=== PATIENT | male | born 1975 | race African-American/Black ===

== ENCOUNTER 2016-10-06 21:28 | Emergency (ER) | payer OTHER ==
--- NOTE | 2016-10-06 21:40 | PDOC ---
History of Present Illness - General Chief Complaint: Blood Sugar Problem Stated Complaint: LOW BLOOD SUGAR Time Seen by Provider: 10/06/16 21:35 - History of Present Illness Initial Comments: 10/06/16 22:24 This 41-year-old man with a history of sickle cell trait and chronic lower back pain presents with a two-week history of intermittent watery diarrhea, and generalized joint pain. Patient states that the joint pains are typical symptoms of of his sickle-cell trait when he is otherwise stressed. He has no history of measured fever although he has had intermittent sweating. He describes diarrhea as watery, with several bowel movements per day. There has been no blood or mucus in the stool. No recent travel; no other family members have diarrhea currently. No recent antibiotic therapy. He generally has been able to eat and drink normally although his appetite is not normal in the last few weeks. Tonight, patient felt more upper abdominal discomfort and nausea that he had in the past few weeks. Past History - Past Medical History Allergies/Adverse Reactions: Allergies Allergy/AdvReac Type Severity Reaction Status Date / Time No Known Allergies Allergy Verified 11/11/15 11:48 Home Medications: Ambulatory Orders Methocarbamol [Robaxin -] 500 mg PO TID PRN #30 tablet 11/11/15 Naproxen [Naprosyn -] 500 mg PO BID PRN #14 tablet 11/11/15 - Psycho/Social/Smoking Cessation Hx Anxiety: No Suicidal Ideation: No Smoking History: Current every day smoker Have you smoked in the past 12 months: Yes Number of Cigarettes Smoked Daily: 3 'Breaking Loose' booklet given: 08/29/15 Hx Alcohol Use: No Drug/Substance Use Hx: No Substance Use Type: None Review of Systems - Review of Systems Able to Perform ROS?: Yes Comments:: 12 point review of systems is negative except for what is noted in the history of present illness *Physical Exam - Physical Exam Comments: GENERAL: The patient is awake, alert, and fully oriented, in no acute distress. Vital signs as noted. HEAD: Normal with no signs of trauma. EYES: Pupils equal, round and reactive to light, extraocular movements intact, sclera anicteric, conjunctiva clear with no pallor. ENT: Dry mucous membranes. Ears normal, nares patent, oropharynx clear without exudates. NECK: Normal range of motion, supple without lymphadenopathy, JVD, or masses. LUNGS: Breath sounds equal, clear to auscultation bilaterally. No wheeze/ crackles. HEART: Regular rate and rhythm, normal S1 and S2 without murmur or rub. ABDOMEN: Soft/nondistended. BS wnl. Mild epigastric tenderness. Voluntary guarding present. No involuntary guarding or rebound. No palpable masses. No hepatosplenomegaly. EXTREMITIES: Normal range of motion, no edema. No clubbing or cyanosis. No cords, erythema, or tenderness. No edema/erythema/increased warmth of joints noted NEUROLOGICAL: Cranial nerves II through XII grossly intact. Normal speech, normal gait. PSYCH: Normal mood, normal affect. SKIN: Warm, Dry, normal turgor, no rashes or lesions noted. ED Treatment Course - LABORATORY CBC & Chemistry Diagram: 10/06/16 22:25 10/06/16 22:25 Medical Decision Making - Medical Decision Making 10/06/16 23:51 Patient feels markedly better after 1 L normal saline, 30 mg of Toradol IV and Reglan 10 mg IV. No further abdominal pain or nausea present. Patient feels ready to be discharged. Laboratory evaluation generally unremarkable except for elevated total bilirubin of 3.1. Patient has had elevated bilirubin in the past in the 1.2- 1.3 range. No other abnormalities noted in the LFTs. Bilirubin level discussed with the patient; he will follow-up with his PMD, Dr. Fried within the next 2-3 days Meanwhile, the patient will continue to drink plenty of fluids and take Imodium as needed after loose stools. Patient will return to the ER if he has worsening pain, develops fever or vomiting *DC/Admit/Observation/Transfer Diagnosis at time of Disposition: Diarrhea - Discharge Dispostion Disposition: HOME Condition at time of disposition: Stable - Referrals Referrals: Sreedhar Fried MD [Staff Physician] - 2 Days - Patient Instructions Printed Discharge Instructions: DI for Diarrhea and Traveler's Diarrhea -- Adult Additional Instructions: Continue to drink plenty of fluids Imodium as needed after loose stools Return to ER if you have vomiting, increased abdominal pain or fever Follow-up with Dr. Fried within the next 2-3 days
[2016-10-06 21:52] VITALS: BP 151/90; PULSE 82; TEMP 98.3; BMI 23.7
[2016-10-06] MEDS ORDERED: KETOROLAC TROMETHAMINE 30 MG/1 ML VIAL IVPUSH ONE (22:22)
[2016-10-06] MEDS ORDERED: SODIUM CHLORIDE 1,000 ML IV STA (22:22)
[2016-10-06] MEDS ORDERED: METOCLOPRAMIDE HCL INJECTION 10 MG/2 ML VIAL IVPB ONE (22:22)
[2016-10-06] MEDS ORDERED: KETOROLAC TROMETHAMINE 30 MG/1 ML VIAL ONE (22:32)
[2016-10-06 22:41] LABS: MCH 28.6 pg (25.7-33.7); MEAN CELL VOLUME 86.6 fl (80-96); MEAN PLT VOLUME 9.2 fl (7.5-11.1); PLATELET COUNT 189 K/MM3 (134-434); RDW 12.3 % (11.9-15.9); WHITE BLOOD COUNT 5.2 K/mm3 (4.0-10.8)
[2016-10-06 22:52] LABS: ALBUMIN 3.9 g/dl (3.5-5.0); ALK PHOS 52 U/L (32-92); ANION GAP 10 (8-16); BILIRUBIN,TOTAL 3.1 mg/dl (0.2-1.0); CO2 24 mmol/L (22-28); CREATININE 1.2 mg/dl (0.6-1.3); GLUCOSE,RANDOM 93 mg/dl (74-106); SGOT/AST 21 U/L (10-42); SGPT/ALT 17 U/L (10-40); TOT PROT 6.5 g/dl (6.4-8.3)
[2016-10-06] MEDS ORDERED: POTASSIUM CHLORIDE TABS 20 MEQ TABLET.ER (FP) PO ONE ×2 (23:48→23:50)
== END 2016-10-07 00:03 | disposition home or self-care (01) ==
LOC: FER 21:28
PROC: 3E0333Z Introduction of Anti-inflammatory into Peripheral Vein, Percutaneous Approach (ICD-10-PCS; principal; 2016-10-06)
PROC: 3E033GC Introduction of Other Therapeutic Substance into Peripheral Vein, Percutaneous Approach (ICD-10-PCS; 2016-10-06)
PROC: 3E0337Z Introduction of Electrolytic and Water Balance Substance into Peripheral Vein, Percutaneous Approach (ICD-10-PCS; 2016-10-06)
DX: R19.7 Diarrhea, unspecified (principal); F17.210 Nicotine dependence, cigarettes, uncomplicated; D57.3 Sickle-cell trait; G89.29 Other chronic pain
CPT/HCPCS: 36415; 80053; 85025; 99282-25

== ENCOUNTER 2019-02-17 09:33 | Emergency (ER) | payer OTHER ==
[2019-02-17 09:40] VITALS: TEMP 99.3; BMI 21.2
--- NOTE | 2019-02-17 10:02 | PDOC ---
History of Present Illness - General Chief Complaint: Pain Stated Complaint: SICKLE CELL Time Seen by Provider: 02/17/19 10:02 History Source: Patient Exam Limitations: No Limitations - History of Present Illness Initial Comments: 43 year old male with PMH sickle cell trait presented to ED for left low back pain since yesterday, suprapubic pain since yesterday, increased urinary frequency x1 week, n/v yesterday. 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 He reported he intermittently has episodes of diffuse pain/n/v related to his sickle cell trait, and he usually takes Naproxen for his pain. He reported that he did not take it for this episode because he does not have any because he has not had an episode like this recently. Pt denied chest pain, shortness of breath , bowel or bladder incontinence, weight loss, spinal injections, hx of DM, IVDU. Past History - Past Medical History Allergies/Adverse Reactions: Allergies Allergy/AdvReac Type Severity Reaction Status Date / Time No Known Allergies Allergy Verified 11/11/15 11:48 Home Medications: Ambulatory Orders Methocarbamol [Robaxin -] 500 mg PO TID PRN #9 tablet 02/17/19 Naproxen 500 mg PO BID #10 tablet 02/17/19 COPD: No Other medical history: Sickle cell - Psycho Social/Smoking Cessation Hx Smoking History: Never smoked Have you smoked in the past 12 months: No Number of Cigarettes Smoked Daily: 3 'Breaking Loose' booklet given: 08/29/15 Hx Alcohol Use: No Drug/Substance Use Hx: No Substance Use Type: None Review of Systems - Review of Systems Able to Perform ROS?: Yes Comments:: ROS General: admitted to generalized weakness. denied fever, chills. HEENT: denied sore throat, rhinorrhea, ear pain. Cardiovascular: denied chest pain, palpitations, syncope, diaphoresis. Respiratory: denied shortness of breath, cough, sputum production, hemoptysis. Gastrointestinal: admitted to abdominal pain. denied nausea, vomiting, diarrhea , constipation, blood in stool, bowel incontinence. Genitourinary: admitted to increased urinary frequency. denied dysuria, hematuria, urinary incontinence, flank pain. Back: admitted to back pain. Musculoskeletal: admitted to joint pain, muscle pain. denied joint swelling. Neurological: denied headache, dizziness, numbness, tingling, weakness. Integumentary: denied rash, laceration, abrasion. Hematologic/Lymphatic: denied bruising or bleeding. PE Constitutional: Well-nourished, Well-developed, appearing stated age. HEENT: head is normocephalic, atraumatic. EOMI. PERRLA. Neck: supple. Full ROM. Cardiovascular: regular heart rhythm. no murmurs. no pericardial friction rub. Respiratory: clear to auscultation bilaterally. no crackles, rhonchi or wheezing. no stridor. Gastrointestinal: soft, flat, nontender. normal bowel sounds. no rebound, guarding, masses. Extremities: peripheral pulses intact. no lower extremity edema. Neurological: CN 2-12 grossly intact. moves all four extremities. Psych: awake, alert, oriented x3. follows commands. answers questions appropriately. Back: increased left erector spinae muscle tone with tenderness to palpation. no midline c-spine, T-spine, or L-spine tenderness. negative straight leg test bilaterally. *Physical Exam - Vital Signs Last Vital Signs Temp Pulse Resp BP Pulse Ox 99.3 F 91 H 18 115/79 100 02/17/19 09:36 02/17/19 09:36 02/17/19 09:36 02/17/19 09:36 02/17/19 09:36 ED Treatment Course - LABORATORY CBC & Chemistry Diagram: 02/17/19 10:30 02/17/19 10:30 Medical Decision Making - Medical Decision Making 43 year old male with above PMH presented to ED for diffuse pain, left low back pain s/p lifting heavy desk, increased urinary frequency x1 week with suprapubic discomfort x1 day. Initial Vital Signs Temp Pulse Resp BP Pulse Ox 99.3 F 91 H 18 115/79 100 02/17/19 09:36 02/17/19 09:36 02/17/19 09:36 02/17/19 09:36 02/17/19 09:36 Afebrile. No tachycardia. No tachypnea. No hypotension. No hypoxia on room air. Labs ordered: CBC, CMP, troponin Imaging ordered: CXR Medications ordered: toradol 30 mg IV once, normal saline bolus 1000 cc once EKG performed at 1023: rate 91, regular rhythm, normal axis, normal intervals, no acute ST changes. 02/17/19 12:18 CBC WBC 8.8 K/mm3 (4.0-10.0) 02/17/19 10:30 RBC 4.83 M/mm3 (4.00-5.60) 02/17/19 10:30 Hgb 14.0 GM/dL (11.7-16.9) 02/17/19 10:30 Hct 42.8 % (35.4-49) 02/17/19 10:30 MCV 88.7 fl (80-96) 02/17/19 10:30 MCH 29.0 pg (25.7-33.7) 02/17/19 10:30 MCHC 32.8 g/dl (32.0-35.9) 02/17/19 10:30 RDW 13.1 % (11.9-15.9) 02/17/19 10:30 Plt Count 191 K/MM3 (134-434) 02/17/19 10:30 MPV 9.9 fl (7.5-11.1) 02/17/19 10:30 Absolute Neuts (auto) 7.8 K/mm3 (1.5-8.0) 02/17/19 10:30 Neutrophils % 88.0 % (42.8-82.8) H 02/17/19 10:30 Lymphocytes % 5.4 % (8-40) L 02/17/19 10:30 Monocytes % 5.3 % (3.8-10.2) 02/17/19 10:30 Eosinophils % 1.1 % (0-4.5) 02/17/19 10:30 Basophils % 0.2 % (0-2.0) 02/17/19 10:30 Nucleated RBC % 0 % (0-0) 02/17/19 10:30 CMP Sodium 138 mmol/L (136-145) 02/17/19 10:30 Potassium 4.0 mmol/L (3.5-5.1) 02/17/19 10:30 Chloride 105 mmol/L (98-107) 02/17/19 10:30 Carbon Dioxide 30 mmol/L (21-32) 02/17/19 10:30 Anion Gap 4 MMOL/L (8-16) L 02/17/19 10:30 BUN 8.0 mg/dL (7-18) 02/17/19 10:30 Creatinine 1.2 mg/dL (0.55-1.3) 02/17/19 10:30 Est GFR (CKD-EPI)AfAm 85.92 02/17/19 10:30 Est GFR (CKD-EPI)NonAf 74.14 02/17/19 10:30 Random Glucose 101 mg/dL (74-106) 02/17/19 10:30 Calcium 9.1 mg/dL (8.5-10.1) 02/17/19 10:30 Total Bilirubin 1.1 mg/dL (0.2-1) H 02/17/19 10:30 AST 24 U/L (15-37) 02/17/19 10:30 ALT 32 U/L (13-61) 02/17/19 10:30 Alkaline Phosphatase 65 U/L (45-117) 02/17/19 10:30 Troponin I < 0.02 ng/ml (0.00-0.05) 02/17/19 10:30 Total Protein 6.9 g/dl (6.4-8.2) 02/17/19 10:30 Albumin 3.7 g/dl (3.4-5.0) 02/17/19 10:30 Urine Test Results Urine Color Yellow 02/17/19 11:40 Urine Appearance Clear 02/17/19 11:40 Urine pH 8.5 (5.0-8.0) H 02/17/19 11:40 Ur Specific [place] 1.011 (1.010-1.035) 02/17/19 11:40 Urine Protein Negative (NEGATIVE) 02/17/19 11:40 Urine Glucose (UA) Negative (NEGATIVE) 02/17/19 11:40 Urine Ketones Negative (NEGATIVE) 02/17/19 11:40 Urine Blood Negative (NEGATIVE) 02/17/19 11:40 Urine Nitrite Negative (NEGATIVE) 02/17/19 11:40 Urine Bilirubin Negative (NEGATIVE) 02/17/19 11:40 Ur Leukocyte Esterase Negative (NEGATIVE) 02/17/19 11:40 No leukocytosis. No anemia. No electrolyte imbalances. No transaminitis. Troponin undetectable. Negative for UTI. No hematuria. No proteinuria. Pt reported improvement of symptoms. 02/17/19 12:49 CXR report: Name: [facility] DEPARTMENT OF RADIOLOGY Phys: Skye Stanford RESIDENT : 1975 Age: 43 Sex: M [facility] Acct: [id number] Loc: [facility] [address] [facility] Exam Date: 02/17/19 Status: WENDIE [place] [id number] Unit Number: [id number] EXAM#: TYPE/EXAM: RESULT: [id number] RAD/CHEST PA LAT History sickle cell disease complains diffuse pain. Chest. 3 views. Unremarkable contour of the cardiomediastinal silhouette. The lungs are well aerated without evidence of a pulmonary infiltrates, atelectasis. No evidence of pulmonary edema, vascular congestive changes. No evidence of bulky hilar adenopathy. No pleural effusion or pneumothorax is seen. The visualized osseous structures appear intact. Impression. No evidence of active pulmonary disease. Reported By: Paul Castillo MD 02/17/19 1242 Pt informed of results. Pt discharged with prescription for Robaxin and Naproxen. Discharge - Discharge Information Problems reviewed: Yes Clinical Impression/Diagnosis: Back pain Condition: Improved Disposition: HOME - Admission No - Additional Discharge Information Prescriptions: Methocarbamol [Robaxin -] 500 mg PO TID PRN #9 tablet PRN Reason: Back Pain Naproxen 500 mg PO BID #10 tablet - Follow up/Referral Referrals: [facility] [place] [Provider Group] - Patient Discharge Instructions Patient Printed Discharge Instructions: DI for Back Pain With Sciatica Additional Instructions: Follow up with your primary care doctor within 3 days. Your care is not complete until you follow up. I have provided you with referral should you need it for our Clinic System. Call [phone]. Take prescriptions as indicated on labels. Return to the Emergency Department for fever, weakness, numbness, tingling, loss of bowel or bladder control, genital numbness, increasing pain, inability to walk or any other new, worsening or concerning symptoms. - Post Discharge Activity Work/Back to School Note: Back to Work
[2019-02-17] MEDS ORDERED: KETOROLAC TROMETHAMINE 30 MG/1 ML VIAL IVPUSH ONE (10:03)
[2019-02-17] MEDS ORDERED: SODIUM CHLORIDE 1,000 ML IV STA (10:03)
[2019-02-17] MEDS ORDERED: METHOCARBAMOL 500 MG TABLET PO ONE (10:22)
[2019-02-17] MEDS ORDERED: KETOROLAC TROMETHAMINE 30 MG/1 ML VIAL ONE (10:25)
[2019-02-17] MEDS ORDERED: METOCLOPRAMIDE HCL INJECTION 10 MG/2 ML VIAL IVPUSH ONE (10:39)
[2019-02-17] MEDS ORDERED: METHOCARBAMOL 500 MG TABLET ONE (10:48)
[2019-02-17] MEDS ORDERED: METOCLOPRAMIDE HCL INJECTION 10 MG/2 ML VIAL ONE (10:49)
[2019-02-17 11:08] LABS: BASO % 0.2 % (0-2.0); EOS % 1.1 % (0-4.5); HEMATOCRIT 42.8 % (35.4-49); LYMPH % 5.4 % (8-40); MCHC 32.8 g/dl (32.0-35.9); MEAN CELL VOLUME 88.7 fl (80-96); MEAN PLT VOLUME 9.9 fl (7.5-11.1); MONO % 5.3 % (3.8-10.2); PLATELET COUNT 191 K/MM3 (134-434); RBC 4.83 M/mm3 (4.00-5.60); RDW 13.1 % (11.9-15.9); WHITE BLOOD COUNT 8.8 K/mm3 (4.0-10.0)
[2019-02-17 11:33] LABS: ALBUMIN 3.7 g/dl (3.4-5.0); ALK PHOS 65 U/L (45-117); ANION GAP 4 MMOL/L (8-16); BILIRUBIN,TOTAL 1.1 mg/dL (0.2-1); CALCIUM 9.1 mg/dL (8.5-10.1); CHLORIDE 105 mmol/L (98-107); CO2 30 mmol/L (21-32); CREATININE 1.2 mg/dL (0.55-1.3); GLUCOSE,RANDOM 101 mg/dL (74-106); SGOT/AST 24 U/L (15-37); SGPT/ALT 32 U/L (13-61); SODIUM 138 mmol/L (136-145); TOT PROT 6.9 g/dl (6.4-8.2)
[2019-02-17 12:02] LABS: PH,URINE 8.5 (5.0-8.0); URINE APPEARANCE CLEAR; URINE BILIRUBIN NEGATIVE (NEGATIVE); URINE COLOR YELLOW; URINE GLUCOSE (UA) NEGATIVE (NEGATIVE); URINE KETONE NEGATIVE (NEGATIVE); URINE LEUK ESTERASE NEGATIVE (NEGATIVE); URINE NITRITE NEGATIVE (NEGATIVE); URINE PROTEIN NEGATIVE (NEGATIVE); URINE UROBILINOGEN 0.2 mg/dL (0.2-1.0)
--- NOTE | 2019-02-17 12:57 | PDOC ---
Attending Attestation - Resident Resident Name: Skye Stanford - ED Attending Attestation I have performed the following: I have examined & evaluated the patient, The case was reviewed & discussed with the resident, I agree w/resident's findings & plan, Exceptions are as noted - HPI HPI: 02/17/19 13:11 43 years old with past medical history significant for sickle cell trait presents to the ED with left low back pain since yesterday after moving a piece of furniture patient has had similar back discomfort in the past no weakness no numbness no incontinence no fevers ROS: A complete review of 10 out of 10 review of systems is taken and is negative apart from what is previously mentioned below and in the HPI. - Physicial Exam PE: 02/17/19 13:11 Vitals: Triage Vital signs General Appearance: No acute distress, well nourished well developed, Head: Atraumatic, Neck: Supple; no Nucal rigidity Chest Wall: Nontender Cardiac: Regular rate and rhythym, no murmurs, no rubs, no gallops, Lungs: Clear to auscultation bilateral, good air movement bilaterally, Musculoskeletal: Mild reproducible left lower back pain Abdomen: Soft, non distended, normal bowel sounds, non tender to palpation Extremities: Full range of motion to all extremities, no cyanosis, clubbing, or edema Skin: Warm and dry, no rashes or lesions, no rash, no petechiae Psych: Normal mood, normal affect - Medical Decision Making 02/17/19 13:14 Well-appearing no apparent distress with reproducible low back discomfort after lifting object no red flags on back pain history Status post pain medication patient feels much better will discharge home a short course of Flexeril Findings, the need for follow-up and strict return instructions discussed with patient.
[2019-02-17 13:33] VITALS: BP 128/74; PULSE 81
--- NOTE | 2019-02-17 15:15 | EKG ---
Test Reason : Blood Pressure : / mmHG Vent. Rate : 091 BPM Atrial Rate : 091 BPM P-R Int : 168 ms QRS Dur : 092 ms QT Int : 340 ms P-R-T Axes : 068 061 052 degrees QTc Int : 418 ms NORMAL SINUS RHYTHM POSSIBLE LEFT ATRIAL ENLARGEMENT RSR' in V1 and V2 BORDERLINE ECG NO PREVIOUS ECGS AVAILABLE Confirmed by MD Phi, Dario ([id number]) on 02/17/2019 3:15:14 PM Referred By: Confirmed By:Dario Yip MD
== END 2019-02-17 13:34 | disposition home or self-care (01) ==
LOC: JER 09:33
PROC: 3E0333Z Introduction of Anti-inflammatory into Peripheral Vein, Percutaneous Approach (ICD-10-PCS; principal; 2019-02-17)
PROC: 3E033GC Introduction of Other Therapeutic Substance into Peripheral Vein, Percutaneous Approach (ICD-10-PCS; 2019-02-17)
DX: M54.5 Low back pain (principal); X50.0XXA Overexertion from strenuous movement or load, initial encounter; X50.9XXA Other and unspecified overexertion or strenuous movements or postures, initial encounter; Y93.89 Activity, other specified; Y92.89 Other specified places as the place of occurrence of the external cause; Y99.0 Civilian activity done for income or pay; D57.3 Sickle-cell trait
CPT/HCPCS: 36415; 71046-TC-FY; 80053; 81003; 84484; 85025; 87086; 93005; 93010; 96374; 96375; 99283-25; J7030

== ENCOUNTER 2021-04-11 13:36 | Emergency (ER) | payer OTHER ==
[2021-04-11 13:44] VITALS: PULSE 84; BMI 23.7
[2021-04-11] MEDS ORDERED: LACTATED RINGERS SOLUTION 1000 ML INFUS.BAG IV ONE (14:11)
[2021-04-11] MEDS ORDERED: ACETAMINOPHEN 1000 MG/100 ML VIAL IVPB ONE (14:11)
[2021-04-11] MEDS ORDERED: ACETAMINOPHEN INJECTION 100 ML IVPB ONE (14:16)
[2021-04-11 15:13] LABS: BASO % 0.3 % (0-2.0); EOS % 0.2 % (0-4.5); HEMATOCRIT 39.2 % (35.4-49); HEMOGLOBIN 13.2 GM/dL (11.7-16.9); LYMPH % 2.1 % (8-40); MCH 29.5 pg (25.7-33.7); MCHC 33.7 g/dl (32.0-35.9); MEAN CELL VOLUME 87.5 fl (80-96); MEAN PLT VOLUME 8.9 fl (7.5-11.1); NEUT % 87.4 % (42.8-82.8); PLATELET COUNT 166 10^3/uL (134-434); RBC 4.49 M/mm3 (4.00-5.60); RDW 13.2 % (11.9-15.9); WHITE BLOOD COUNT 8.6 K/mm3 (4.0-10.0)
[2021-04-11 15:19] LABS: INR 1.12 (0.83-1.09); PROTHROMBIN TIME (PATIENT) 12.6 SEC (9.7-13.0)
[2021-04-11 15:21] LABS: ACTIVATED PTT 28.1 SECONDS (25.2-36.5)
[2021-04-11 15:30] LABS: CALCIUM 8.9 mg/dL (8.5-10.1)
[2021-04-11 15:31] LABS: ALBUMIN 3.4 g/dl (3.4-5.0); BLOOD UREA NITROGEN 6.7 mg/dL (7-18)
[2021-04-11 15:34] LABS: CREATININE 1.2 mg/dL (0.55-1.3)
[2021-04-11 15:35] LABS: BILIRUBIN,TOTAL 0.7 mg/dL (0.2-1); TOT PROT 6.7 g/dl (6.4-8.2)
[2021-04-11] MEDS ORDERED: KETOROLAC TROMETHAMINE 15 MG/ML VIAL IVPUSH ONE (16:01)
[2021-04-11] MEDS ORDERED: KETOROLAC TROMETHAMINE 30 MG/1 ML VIAL ONE (16:10)
[2021-04-11 16:32] VITALS: BP 113/60; TEMP 99.4
[2021-04-11 17:26] LABS: PH,URINE 7.5 (5.0-8.0); URINE APPEARANCE CLEAR; URINE BILIRUBIN NEGATIVE (NEGATIVE); URINE COLOR YELLOW; URINE GLUCOSE (UA) NEGATIVE (NEGATIVE); URINE KETONE NEGATIVE (NEGATIVE); URINE LEUK ESTERASE NEGATIVE (NEGATIVE); URINE NITRITE NEGATIVE (NEGATIVE); URINE PROTEIN NEGATIVE (NEGATIVE)
== END 2021-04-11 16:25 | disposition home or self-care (01) ==
LOC: JER 13:36
PROC: 3E033GC Introduction of Other Therapeutic Substance into Peripheral Vein, Percutaneous Approach (ICD-10-PCS; principal; 2021-04-11)
DX: J11.1 Influenza due to unidentified influenza virus with other respiratory manifestations (principal)
CPT/HCPCS: 36415; 71046-TC-FY; 80053; 81003; 83605; 85025; 85610; 85730; 87040; 87070; 87086; 87651; 87804; 87807; 93005; 93010; 99285-25; C9803; J0131; U0003; U0005

== ENCOUNTER 2022-01-16 09:56 | Emergency (ER) | payer OTHER ==
[2022-01-16 10:03] VITALS: BP 115/75; PULSE 96; RESP 16; TEMP 98.4; BMI 22.5
[2022-01-16] MEDS ORDERED: KETOROLAC TROMETHAMINE 30 MG/1 ML VIAL IM ONE (10:31)
[2022-01-16] MEDS ORDERED: GABAPENTIN 100 MG CAPSULE PO ONE (10:31)
[2022-01-16] MEDS ORDERED: KETOROLAC TROMETHAMINE 30 MG/1 ML VIAL ONE (10:41)
[2022-01-16] MEDS ORDERED: GABAPENTIN 100 MG CAPSULE ONE (10:43)
== END 2022-01-16 12:24 | disposition home or self-care (01) ==
LOC: JERFT 09:56
PROC: 3E0233Z Introduction of Anti-inflammatory into Muscle, Percutaneous Approach (ICD-10-PCS; principal; 2022-01-16)
DX: M54.2 Cervicalgia (principal); R20.2 Paresthesia of skin
CPT/HCPCS: 72125-TC; 99284-25

== ENCOUNTER 2022-02-18 17:15 | Emergency (ER) | payer OTHER ==
[2022-02-18 17:19] VITALS: BP 134/85; PULSE 83; RESP 18; TEMP 98.7; BMI 22.5
[2022-02-18] MEDS ORDERED: KETOROLAC TROMETHAMINE 30 MG/1 ML VIAL IM ONE (18:41)
[2022-02-18] MEDS ORDERED: diazePAM 5 MG TABLET PO ONE (18:41)
[2022-02-18] MEDS ORDERED: LIDOCAINE 5% TOPICAL PATCH TP ONE ×2 (18:42)
[2022-02-18] MEDS ORDERED: LIDOCAINE 5% TOPICAL PATCH ONE (18:52)
[2022-02-18] MEDS ORDERED: diazePAM 5 MG TABLET ONE (18:52)
[2022-02-18] MEDS ORDERED: KETOROLAC TROMETHAMINE 30 MG/1 ML VIAL ONE (18:52)
[2022-02-18 20:16] LABS: EPI CELLS 34 /uL (0-25.1); HYALINE CASTS 4 /uL (0-3.1); URINE APPEARANCE CLEAR; URINE BACTERIA 25 /uL (0-1359); URINE BILIRUBIN NEGATIVE (NEGATIVE); URINE COLOR YELLOW; URINE GLUCOSE (UA) NEGATIVE (NEGATIVE); URINE KETONE 1+ (NEGATIVE); URINE LEUK ESTERASE TRACE (NEGATIVE); URINE NITRITE NEGATIVE (NEGATIVE); URINE PROTEIN 1+ (NEGATIVE); URINE RBC 22 /uL (0-23.9); URINE WBC 9 /uL (0-25.8)
[2022-02-18] MEDS ORDERED: LIDOCAINE PATCH REMOVAL MC SCH (22:00)
== END 2022-02-18 20:24 | disposition home or self-care (01) ==
LOC: JERFT 17:15 → JER 17:15 → JERFT 20:24
PROC: 3E0233Z Introduction of Anti-inflammatory into Muscle, Percutaneous Approach (ICD-10-PCS; principal; 2022-02-18)
DX: M62.830 Muscle spasm of back (principal)
CPT/HCPCS: 81003; 87086; 99283-25

== ENCOUNTER 2023-08-28 08:20 | Emergency (ER) | payer OTHER ==
[2023-08-28 08:36] VITALS: BP 142/75; PULSE 101; RESP 18; TEMP 98.3; BMI 20.6
[2023-08-28] MEDS ORDERED: ACETAMINOPHEN INJECTION 100 ML IVPB ONE (09:17)
[2023-08-28] MEDS ORDERED: KETOROLAC TROMETHAMINE 30 MG/1 ML VIAL ONE (09:17)
[2023-08-28] MEDS: ACETAMINOPHEN 1000 MG/100 ML BAG IVPB ONE (09:32)
[2023-08-28] MEDS: SODIUM CHLORIDE 0.9% 500 ML INFUS.BAG IV ONE (09:32)
[2023-08-28] MEDS: KETOROLAC TROMETHAMINE 30 MG/1 ML VIAL IVPUSH ONE (09:33)
[2023-08-28] MEDS ORDERED: GABAPENTIN 100 MG CAPSULE ONE (09:38)
[2023-08-28] MEDS ORDERED: ONDANSETRON 4 MG/2 ML VIAL ONE (09:39)
[2023-08-28 09:44] LABS: BASO % 0.2 % (0-2.0); EOS % 0.6 % (0-4.5); HEMATOCRIT 47.8 % (35.4-49); HEMOGLOBIN 16.3 GM/dL (11.7-16.9); LYMPH % 11.9 % (8-40); MCH 29.5 pg (25.7-33.7); MEAN CELL VOLUME 86.7 fl (80-96); MONO % 4.5 % (3.8-10.2); NEUT % 82.8 % (42.8-82.8); PLATELET COUNT 201 10^3/uL (134-434); RBC 5.52 M/mm3 (4.00-5.60); RDW 13.4 % (11.9-15.9); RETICULOCYTES 0.34 % (0.5-1.5); WHITE BLOOD COUNT 6.3 K/mm3 (4.0-10.0)
[2023-08-28] MEDS: ONDANSETRON 4 MG/2 ML VIAL IVPUSH ONE (09:44)
[2023-08-28] MEDS: GABAPENTIN 100 MG CAPSULE PO ONE (09:44)
[2023-08-28 10:07] LABS: POTASSIUM 4.6 mmol/L (3.5-5.1)
[2023-08-28 10:09] LABS: CALCIUM 9.4 mg/dL (8.5-10.1)
[2023-08-28 10:10] LABS: ALBUMIN 3.9 g/dl (3.4-5.0); BLOOD UREA NITROGEN 13.2 mg/dL (7-18)
[2023-08-28 10:12] LABS: CREATININE 1.2 mg/dL (0.55-1.3)
[2023-08-28 10:16] LABS: BILIRUBIN,TOTAL 0.9 mg/dL (0.2-1)
[2023-08-28 11:29] LABS: EPI CELLS 8 /uL (0-25.1); HYALINE CASTS 0 /uL (0-3.1); URINE APPEARANCE CLEAR; URINE BACTERIA 18 /uL (0-1359); URINE BILIRUBIN NEGATIVE (NEGATIVE); URINE COLOR YELLOW; URINE GLUCOSE (UA) NEGATIVE (NEGATIVE); URINE KETONE NEGATIVE (NEGATIVE); URINE LEUK ESTERASE 1+ (NEGATIVE); URINE NITRITE NEGATIVE (NEGATIVE); URINE PROTEIN NEGATIVE (NEGATIVE); URINE RBC 10 /uL (0-23.9); URINE WBC 40 /uL (0-25.8)
== END 2023-08-28 12:19 | disposition home or self-care (01) ==
LOC: JER 08:20
PROC: 3E030NZ Introduction of Analgesics, Hypnotics, Sedatives into Peripheral Vein, Open Approach (ICD-10-PCS; principal; 2023-08-28)
PROC: 3E0303Z Introduction of Anti-inflammatory into Peripheral Vein, Open Approach (ICD-10-PCS; 2023-08-28)
PROC: 3E030GC Introduction of Other Therapeutic Substance into Peripheral Vein, Open Approach (ICD-10-PCS; 2023-08-28)
DX: R10.84 Generalized abdominal pain (principal); R11.2 Nausea with vomiting, unspecified; M25.561 Pain in right knee; M79.10 Myalgia, unspecified site; W20.8XXA Other cause of strike by thrown, projected or falling object, initial encounter; Z20.822 Contact with and (suspected) exposure to COVID-19
CPT/HCPCS: 0241U-QW; 36415; 73562-TC-LT-FY; 80053; 81003; 83690; 85025; 85045; 87086; 87491; 87591; 99284-25; J0131